=== PATIENT | male | born 1940 | race Caucasian/White ===

== ENCOUNTER → 2017-03-03 | Outpatient (CLI) | payer OTHER, MEDICARE ==
[~2017-03-03] MED LIST: ACET-1256 PO; ATOR-22 PO; CARV25TA2 PO; CETICHW4 PO; CHOL2000 PO; COEN100C7 PO; CYAN500T13 PO; FINA5TAB PO; INDA1TAB3 PO; LISI-725 PO; TAMS0.4C38 PO
[2017-03-03 11:51] LABS: URINE APPEARANCE CLEAR (CLEAR); URINE BILIRUBIN NEG (NEG); URINE COLOR YELLOW; URINE NITRITE NEG (NEG); URINE PH 5.5 (4.5-7.5); URINE SPECIFIC GRAVITY 1.013 (1.000-1.030); UROBILINOGEN NEG (NEG); ZZUR CULT IF INDIC CLEAN CATCH YES
[2017-03-03 11:52] LABS: MANUAL MICROSCOPIC REQUIRED? NO; REVIEW REQ? NO
[2017-03-03 12:06] LABS: URINE PROTIEN/CREAT RATIO 0.7 (0-0.2); URINE TOTAL PROTEIN 38.2 mg/dl (0-11.9)
[2017-03-07 06:12] LABS: ALBUMIN % 65.97 %; ALPHA-2-GLOBULIN % 7.91 %; BETA GLOBULIN % 10.42 %; CREATININE UR 61 MG/DL (20-370); GAMMA GLOBULIN % 10.83 %
== END | disposition home or self-care (01) ==
LOC: C.LAB1850 10:43
PROVIDERS: ATTEND Internal Medicine Nephrology
DX: R80.9 Proteinuria, unspecified (principal)